=== PATIENT | female | born 1940 | race Caucasian/White ===

== ENCOUNTER 2021-11-04 17:06 | Emergency (ER) | payer MEDICARE ==
[~2021-11-04] VITALS: Ht 177.8 cm; Wt 111.1 kg
--- NOTE | 2021-11-04 17:24 | ED Cough/URI ---
General Chief Complaint: Cough/Cold/Flu Symptoms Stated Complaint: COUGH; DIZZINESS Source: patient, family Exam Limitations: no limitations History of Present Illness Date Seen by Provider: Nov 04, 2021 Time Seen by Provider: 17:08 Initial Comments 81-year-old female with past medical history of hypertension and chronic A. fib on warfarin coming in due to roughly 6 days of cough, congestion, lightheadedness, and now nausea with dry heaving. The nausea started this morning and that is why she called family to bring her here. She has not been taking any new medications. She has been taking all of her meds as prescribed except for she vomited them up this morning. Has had a COVID-vaccine x2. No fevers that she knows of. No diarrhea, chest pain, shortness of breath, abdominal pain, focal weakness or numbness, vision changes, headache, or any other concerns. Allergies and Home Medications Allergies Coded Allergies: Quinolones (Verified Allergy, Unknown, 11/04/21) Patient Home Medication List Home Medication List Reviewed: Yes Ondansetron (Ondansetron Odt) 4 Mg Tab.rapdis, 4 MG PO Q6H PRN for NAUSEA/VOMITING-1ST LINE Prescribed by: HOWARD AGUILAR on 11/04/21 180 Review of Systems Review of Systems Constitutional: No chills, No fever EENTM: nose congestion Respiratory: cough; No short of breath Cardiovascular: No chest pain Gastrointestinal: No abdominal pain, No diarrhea; nausea, vomiting Genitourinary: no symptoms reported Musculoskeletal: no symptoms reported Skin: no symptoms reported Psychiatric/Neurological: No Symptoms Reported Hematologic/Lymphatic: No Symptoms Reported Immunological/Allergic: no symptoms reported All Other Systems Reviewed Negative Unless Noted: Yes Past Aicjmwt-Sdektg-Avswna Hx Patient Social History Tobacco Use?: No Past Medical History Surgeries: Yes Appendectomy, Gallbladder, Orthopedic Physical Exam Vital Signs - First Documented 11/04/21 17:06 Temp 35.9 Pulse 99 Resp 16 B/P (MAP) 165/85 (111) Pulse Ox 95 O2 Delivery Room Air Capillary Refill : Height: '" Weight: lbs. oz. kg; BMI Method: General Appearance: WD/WN, no apparent distress Eyes: Bilateral Eye Normal Inspection HEENT: PERRL/EOMI, normal ENT inspection, TMs normal, pharynx normal Neck: non-tender, full range of motion, supple, normal inspection Respiratory: chest non-tender, lungs clear, normal breath sounds, no respiratory distress, no accessory muscle use Cardiovascular: no edema, no murmur, irregularly irregular Gastrointestinal: normal bowel sounds, non tender, soft; No distended, No guarding, No rebound Extremities: normal range of motion, non-tender, normal inspection, no pedal edema, no calf tenderness, normal capillary refill Neurologic/Psychiatric: canvas baster jumpbasting II-XII nml as tested, no motor/sensory deficits, alert, normal mood/affect, oriented x 3, other (Normal finger-nose, normal iwjs-nd-fzcm, normal truncal stability was sitting up, normal visual espinoza) Skin: normal color, warm/dry Lymphatic: no adenopathy Progress/Results/Core Measures Suspected Sepsis SIRS Temperature: Pulse: Respiratory Rate: Laboratory Tests 11/04/21 17:20: White Blood Count 8.9 Blood Pressure / Mean: Laboratory Tests 11/04/21 17:20: Creatinine 0.54L, INR Comment 2.0H, Platelet Count 163, Total Bilirubin 1.0 Results/Orders Lab Results Laboratory Tests Test 11/04/21 17:20 Range/Units White Blood Count 8.9 4.3-11.0 10^3/uL Red Blood Count 4.72 3.80-5.11 10^6/uL Hemoglobin 15.1 11.5-16.0 g/dL Hematocrit 46 35-52 % Mean Corpuscular Volume 97 80-99 fL Mean Corpuscular Hemoglobin 32 25-34 pg Mean Corpuscular Hemoglobin Concent 33 32-36 g/dL Red Cell Distribution Width 13.5 10.0-14.5 % Platelet Count 163 130-400 10^3/uL Mean Platelet Volume 10.4 9.0-12.2 fL Immature Granulocyte % (Auto) 0 % Neutrophils (%) (Auto) 80 H 42-75 % Lymphocytes (%) (Auto) 16 12-44 % Monocytes (%) (Auto) 4 0-12 % Eosinophils (%) (Auto) 0 0-10 % Basophils (%) (Auto) 0 0-10 % Neutrophils # (Auto) 7.1 1.8-7.8 X 10^3 Lymphocytes # (Auto) 1.4 1.0-4.0 X 10^3 Monocytes # (Auto) 0.3 0.0-1.0 X 10^3 Eosinophils # (Auto) 0.0 0.0-0.3 10^3/uL Basophils # (Auto) 0.0 0.0-0.1 10^3/uL Immature Granulocyte # (Auto) 0.0 0.0-0.1 10^3/uL Prothrombin Time 23.4 H 12.2-14.7 SEC INR Comment 2.0 H 0.8-1.4 Sodium Level 139 135-145 MMOL/L Potassium Level 4.0 3.6-5.0 MMOL/L Chloride Level 102 98-107 MMOL/L Carbon Dioxide Level 23 21-32 MMOL/L Anion Gap 14 5-14 MMOL/L Blood Urea Nitrogen 13 7-18 MG/DL Creatinine 0.54 L 0.60-1.30 MG/DL Estimat Glomerular Filtration Rate 94 BUN/Creatinine Ratio 24 Glucose Level 141 H 70-105 MG/DL Calcium Level 9.7 8.5-10.1 MG/DL Corrected Calcium 9.4 8.5-10.1 MG/DL Total Bilirubin 1.0 0.1-1.0 MG/DL Aspartate Amino Transf (AST/SGOT) 25 5-34 U/L Alanine Aminotransferase (ALT/SGPT) 18 0-55 U/L Alkaline Phosphatase 106 40-136 U/L Total Protein 8.4 H 6.4-8.2 GM/DL Albumin 4.4 3.2-4.5 GM/DL Influenza Type A Antigen NEGATIVE NEGATIVE Influenza Type B Antigen NEGATIVE NEGATIVE My Orders Orders - HOWARD AGUILAR MD Cbc With Automated Diff (11/04/21 17:22) Comprehensive Metabolic Panel (11/04/21 17:22) Influenza A & B Antigens (11/04/21 17:22) Chest 1 View Ap/Pa Only (11/04/21 17:22) Covid 19 Inhouse Test (11/04/21 17:22) Ondansetron Injection (Zofran Injectio (11/04/21 17:30) Lactated Ringers (Lr 1000 Ml Iv Solution (11/04/21 17:30) Diltiazem Cd 24 Hr Capsule (Cardizem Cd (11/04/21 17:28) Protime With Inr (11/04/21 17:28) Medications Given in ED Current Medications Medications Dose Ordered Sig/Jordan Route Start Time Stop Time Status Last Admin Dose Admin Ondansetron HCl 4 mg ONCE ONCE IVP 11/04/21 17:30 11/04/21 17:31 DC 11/04/21 17:44 4 MG Vital Signs/I&O 11/04/21 17:06 Temp 35.9 Pulse 99 Resp 16 B/P (MAP) 165/85 (111) Pulse Ox 95 O2 Delivery Room Air Capillary Refill : Progress Note : Progress Note 81-year-old female with above history coming in due to cough, lightheadedness, nausea. ABCs were intact and vitals are stable on presentation. She is chronically in A. fib and her heart rates ranging from the 90s to the low 100s. She has not been able to take her medications today because she vomited them up including her diltiazem. An IV was placed and she was given a bolus of IV fluids as well as IV Zofran followed by her oral diltiazem. Basic labs were obtained including INR given she is on warfarin. Chest x-ray also ordered. COVID and flu testing sent. Her son is day 6 of COVID right now. Basic labs unremarkable. Flu testing negative. COVID is a sendout and pending. CXR without acute abnormalities on my interpretation. Feeling slightly better now. I believe she is stable for discharge with outpatient follow up. She was sent home with strict return precautions. Diagnostic Imaging Diagonstic Imaging: Xray Plain Films/CT/US/NM/MRI: chest Comments [facility]. [place], [place] NAME: FREDA GANN [facility] REC#: [id number] PT STATUS: REG ER : 1940 PHYSICIAN: HOWARD AGUILAR MD ADMIT DATE: 11/04/21/ER FS Draft Date of Exam:11/04/21 CHEST 1 VIEW AP/PA ONLY INDICATION: Dizziness, cough, COPD. FINDINGS: Heart size within normal limits. There is some mild prominence of the upper lobe pulmonary venous structures but no vanessa edema. No focal pneumonia. No effusion, pneumothorax or findings of edema. IMPRESSION: Mild vascular distention but no focal infiltrate, edema or pleural pathology. Dictated on workstation # [id number] Dict: 11/04/21 174 Trans: 11/04/21 1746 [facility] [id number] Interpreted by: KIRBY BAIN Electronically signed by: Departure Impression Primary Impression: Person under investigation for COVID-19 Additional Impressions: Nausea Dizziness Disposition: 01 HOME, SELF-CARE Condition: Stable Departure-Patient Inst. Decision time for Depature: 18:30 Referrals: KRYSTLE REYES MD (PCP) Primary Care Physician Patient Instructions: COVID-19 Overview, Dizziness, Adult ED Add. Discharge Instructions: You were seen in the ER for cough and dizziness. You labs look good. Your flu test was negative and the COVID test results should come back tomorrow or Saturday. Your chest xray looks good and you do not have pneumonia. We have sent some nausea medicines to [facility]. Drink plenty of fluids by taking small frequent sips. Scripts Ondansetron (Ondansetron Odt) 4 Mg Tab.rapdis 4 MG PO Q6H PRN for NAUSEA/VOMITING-1ST LINE for 5 Days, #20 TAB Prov: HOWARD AGUILAR MD 11/04/21 HOWARD AGUILAR MD Nov 04, 2021 17:24
[2021-11-04] MEDS ORDERED: dilTIAZem120 MG (CARDIZEM CD) CAP PO STA (17:28)
[2021-11-04] MEDS ORDERED: LACTATED RINGERS 1,000 ML IV SCH (17:30)
[2021-11-04] MEDS ORDERED: ONDANSETRON 4 MG/2 ML (SDV) Z0FRAN IVP ONE (17:30)
[2021-11-04 17:31] LABS: BASOPHILS % (AUTO) 0 % (0-10); EOSINOPHILS % (AUTO) 0 % (0-10); HEMATOCRIT 46 % (35-52); HEMOGLOBIN 15.1 g/dL (11.5-16.0); LYMPHOCYTES # (AUTO) 1.4 X 10^3 (1.0-4.0); LYMPHOCYTES % (AUTO) 16 % (12-44); MEAN CORPUSCULAR HEMOGLOBIN 32 pg (25-34); MEAN CORPUSCULAR HGB CONC 33 g/dL (32-36); MEAN CORPUSCULAR VOLUME 97 fL (80-99); MEAN PLATELET VOLUME 10.4 fL (9.0-12.2); MONOCYTES # (AUTO) 0.3 X 10^3 (0.0-1.0); MONOCYTES % (AUTO) 4 % (0-12); NEUTROPHILS # (AUTO) 7.1 X 10^3 (1.8-7.8); NEUTROPHILS % (AUTO) 80 % (42-75); PLATELET COUNT 163 10^3/uL (130-400); WHITE BLOOD COUNT 8.9 10^3/uL (4.3-11.0)
[2021-11-04 17:40] LABS: PROTHROMBIN TIME PATIENT 23.4 SEC (12.2-14.7)
[2021-11-04 17:45] LABS: ALBUMIN 4.4 GM/DL (3.2-4.5); CALCIUM 9.7 MG/DL (8.5-10.1); CREATININE SERUM 0.54 MG/DL (0.60-1.30); TOTAL PROTEIN 8.4 GM/DL (6.4-8.2)
--- NOTE | 2021-11-04 17:46 | Diagnostic Imaging Report ---
INDICATION: Dizziness, cough, COPD. FINDINGS: Heart size within normal limits. There is some mild prominence of the upper lobe pulmonary venous structures but no vanessa edema. No focal pneumonia. No effusion, pneumothorax or findings of edema. IMPRESSION: Mild vascular distention but no focal infiltrate, edema or pleural pathology. Dictated by: Dictated on workstation # [id number]
[2021-11-04] MEDS ORDERED: ONDA4TAB11 PO (18:02)
[2021-11-04 19:15] VITALS: BP 164/95
== END 2021-11-04 18:31 | disposition home or self-care (01) ==
LOC: EDUNIT# 17:06 → ER FS 17:08
DX: R11.0 Nausea (principal); R42 Dizziness and giddiness; Z20.822 Contact with and (suspected) exposure to COVID-19
CPT/HCPCS: 36415; 71045; 80053; 85025; 85610; 87636; 87804; 96361; 96374